=== PATIENT | female | born 1965 | race Two or more races ===

== ENCOUNTER → 2019-04-14 | Day surgery (SDC) | payer BC ==
[~2019-04-14] MED LIST: ATOR40TA PO; CARV25TA PO; FURO-69 PO; HYDROmorphone 2 MG/ML VIAL IV PRN; IV RINGERS,LACTATED 1000ML 1,000 ML IV SCH; LIDOCAINE 2% PF 5 ML VIAL. ONE; LISI10TA2 PO; METF500T16 PO; MORPHINE SULFATE 2 MG/ML VIAL. IV PRN; ONDANSETRON PF 4 MG/2 ML VIAL. IV PRN; PROCHLORPERAZINE 10 MG/2 ML VIAL. IV PRN; PROPOFOL 20 ML IV ONE; fentaNYL PF VIAL 100 MCG/2 ML VIAL IV PRN
[2019-04-14 09:02] VITALS: BP 132/68
== END | disposition home or self-care (01) ==
LOC: ENDOS 06:53
PROVIDERS: ATTEND Internal Medicine Gastroenterology
DX: R14.0 Abdominal distension (gaseous) (principal); K64.0 First degree hemorrhoids; K57.30 Diverticulosis of large intestine without perforation or abscess without bleeding; K29.50 Unspecified chronic gastritis without bleeding; R10.11 Right upper quadrant pain; I11.0 Hypertensive heart disease with heart failure; I50.9 Heart failure, unspecified; F32.9 Major depressive disorder, single episode, unspecified; E11.9 Type 2 diabetes mellitus without complications; Z80.0 Family history of malignant neoplasm of digestive organs; Z82.49 Family history of ischemic heart disease and other diseases of the circulatory system; Z83.3 Family history of diabetes mellitus; Z82.3 Family history of stroke; Z87.891 Personal history of nicotine dependence; Z79.84 Long term (current) use of oral hypoglycemic drugs; Z79.899 Other long term (current) drug therapy
CPT/HCPCS: 43235; 45378; J2001; J2704

== ENCOUNTER → 2019-04-27 | Outpatient (CLI) | payer BC ==
[2019-04-14 09:02] VITALS: BP 132/68
[~2019-04-27] VITALS: Ht 162.6 cm; Wt 69.9 kg
[~2019-04-27] MED LIST changes: -HYDROmorphone 2 MG/ML VIAL IV PRN; -IV RINGERS,LACTATED 1000ML 1,000 ML IV SCH; -LIDOCAINE 2% PF 5 ML VIAL. ONE; -MORPHINE SULFATE 2 MG/ML VIAL. IV PRN; -ONDANSETRON PF 4 MG/2 ML VIAL. IV PRN; -PROCHLORPERAZINE 10 MG/2 ML VIAL. IV PRN; -PROPOFOL 20 ML IV ONE; +SINCALIDE 1.4 MCG in IV NORMAL SALINE 50ML 30 ML IV ONE; -fentaNYL PF VIAL 100 MCG/2 ML VIAL IV PRN
--- NOTE | 2019-04-27 10:22 | RAD ---
Exam performed: Nuclear medicine hepatobiliary scan. History: Right upper quadrant pain Findings: Following intravenous administration of 5.3 mCi of Choletec tagged with Tc, sequential gamma camera images of the right upper quadrant of the abdomen were obtained. There is prompt accumulation of radionuclide in the liver demonstrates relative focal area of increased uptake in the dome of the liver with somewhat decreased uptake in the rest of the liver probably underlying liver disease or hepatic steatosis. Prompt accumulation in the central intrahepatic biliary radicals, gallbladder, common bile duct and small bowel is noted. Patient was also infused with 1.4mcg of CCK and gallbladder ejection fraction was calculated which measures 40% Impression: 1. No evidence of cystic duct obstruction with gallbladder ejection fraction measuring 40% 2. There is prompt accumulation of radionuclide in the liver demonstrates relative focal area of increased uptake in the dome of the liver with somewhat decreased uptake in the rest of the liver probably underlying liver disease or hepatic steatosis. Electronically signed by: Pepe Rhodes MD (04/27/2019 10:19 AM) [facility]
== END | disposition home or self-care (01) ==
LOC: NM 08:00
PROVIDERS: ATTEND Internal Medicine Gastroenterology
DX: R10.11 Right upper quadrant pain (principal)
CPT/HCPCS: 78227; A9537; J2805

== ENCOUNTER → 2019-05-19 | Outpatient (CLI) | payer BC ==
[2019-04-14 09:02] VITALS: BP 132/68
[~2019-05-19] MED LIST changes: +ATOR40TA59 PO; +LOVA20TA2 PO; -SINCALIDE 1.4 MCG in IV NORMAL SALINE 50ML 30 ML IV ONE; +TRAM50TA PO
[2019-05-19 14:07] LABS: BASO % 1 % (0-3); EOS % 0 % (0-3); HEMATOCRIT 41.2 % (36.0-47.0); HEMOGLOBIN 14.1 g/dL (12.0-15.5); LYMPH # 0.8 x10^3/uL (1.0-4.8); LYMPH % 16 % (24-48); MEAN CORPUSCULAR HEMOGLOBIN 32 pg (25-35); MEAN CORPUSCULAR HGB CONC 34 g/dL (31-37); MEAN CORPUSCULAR VOLUME 93 fL (79-100); MONO # 0.5 x10^3/uL (0.0-1.1); MONO % 10 % (0-9); NEUT # 3.7 x10^3/uL (1.8-7.7); NEUT % 72 % (31-73); PLATELET COUNT 179 x10^3/uL (140-400); RED BLOOD COUNT 4.42 x10^6/uL (3.50-5.40); RED CELL DISTRIBUTION WIDTH 14.3 % (11.5-14.5); WHITE BLOOD COUNT 5.1 x10^3/uL (4.0-11.0)
[2019-05-19 14:19] LABS: ALBUMIN 3.3 g/dL (3.4-5.0); CALCIUM 8.4 mg/dL (8.5-10.1); CREATININE 1.1 mg/dL (0.6-1.0); GFR 52.2; POTASSIUM 3.8 mmol/L (3.5-5.1); TOTAL BILIRUBIN 0.7 mg/dL (0.2-1.0)
--- NOTE | 2019-05-19 14:22 | EKG ---
[facility] [address] [place] [address] Test Date: 2019-05-19 Test Time: 14:21:30 Pat Name: CECILY CASTILLO Department: Room: Gender: F Parlor Chaperone: GILL Bradley : 1965 Requested By: CANDIS ALBARADO Order Number: [id number] Reading MD: Bertrand Borges Measurements Intervals [place] Rate: 85 P: 39 UT: 142 QRS: 116 QRSD: 136 T: -41 QT: 422 QTc: 502 Interpretive Statements SINUS RHYTHM LEFT ATRIAL ABNORMALITY ABNORMAL RIGHT AXIS DEVIATION LEFT POSTERIOR FASCICULAR BLOCK NON SPECIFIC INTRAVENTRICULAR BLOCK QRS(T) CONTOUR ABNORMALITY CONSISTENT WITH ANTEROSEPTAL INFARCT PROBABLY OLD ABNORMAL ECG RI6.01 No previous ECG available for comparison Electronically Signed On 05-20-2019 8:28:21 [employer] 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
--- NOTE | 2019-05-19 14:35 | NUR ---
PT STATES SHE WAS SEEN IN ER ABOUT 10 YEARS AGO AND A KINDERGARTEN TUTOR SAW HER WHO PERFORMED AN ECHO AND HEART CATHETER WHICH SHOWED CHF AND AN EF OF 16%. SHE DID NOT HAVE ANY INSURANCE AT THE TIME AND NEVER FOLLOWED UP. DR ALBARADO NOTIFIED. DR ALBARADO STATES TO ORDER EKG AND CXR, AND TO OBTAIN CARDIAC CONSULT AND CLEARANCE. PT INFORMED OF ABOVE, VOICES UNDERSTANDING.
--- NOTE | 2019-05-19 14:54 | RAD ---
AP and Lateral Views of the Chest 05/19/2019 2:38 PM Indication: Preoperative Comparison: None available Findings: There is nonspecific, ill-defined opacity in the right midlung. Interstitial coarsening is present. There is no pneumothorax or pleural effusion. Heart size is mildly enlarged. No acute osseous changes are seen. IMPRESSION: 1. Nonspecific ill-defined opacity in the right midlung. Consider CT imaging for further characterization 2. Diffuse interstitial coarsening possibly relating to mild chronic lung disease 3. Mild cardiomegaly Electronically signed by: Scott Rabago MD (05/19/2019 2:51 PM) [id number]
--- NOTE | 2019-05-19 15:00 | NUR ---
JABARI BARBA'S OFFICE NOTIFIED OF PT'S NEED FOR A CARDS CLEARANCE FOR HER REYES WITH DR BARGG. WILL NOTIFY A FREDA AND CALL ACACIA IN PAT BACK WITH DATE AND TIME OF REFERRAL SO THAT WE CAN NOTUFY DR BRAGG'S OFFICE. ACACIA, JAKE, UPDATED ON ALL.
== END ==
LOC: SURGPAT 13:03
PROVIDERS: ATTEND Surgery
DX: Z01.818 Encounter for other preprocedural examination (principal); I51.7 Cardiomegaly; I44.5 Left posterior fascicular block; I45.4 Nonspecific intraventricular block; R10.11 Right upper quadrant pain
CPT/HCPCS: 36415; 71046; 80048; 82040; 82247; 85025; 93005

== ENCOUNTER 2019-05-26 15:25 | Inpatient (IN) | payer BC ==
[~2019-05-26] VITALS: Ht 162.6 cm; Wt 62.5 kg
--- NOTE | 2019-05-26 17:04 | PDOC1 ---
History and Physical Date of Admission Date of Admission DATE: 05/26/19 TIME: 16:55 Source Source: Chart review, Patient History of Present Illness History of Present Illness Pt has been having chest pain for months. since february, pain to right chest. thought to be gallbladder, Dr. Luis Alberto banks, then to gen surg for surg eval, sent to Dr. Sepulveda for preop, and he noticed symptoms of heart failure, he called me to day to eval for cardiomyopathy and she did not sleep at all last night, garry 10/24 right chest pain, tramadol not helping, Past Medical History Cardiovascular: HTN, Hyperlipidemia Pulmonary: No pertinent hx Musculoskeletal: low back pain ENT: No pertinent hx Renal/: No pertinent hx Endocrine: Diabetes Past Surgical History Past Surgical History: No pertinent history Family History Family History: No Significant Social History Smoke: No ALCOHOL: none Drugs: None Current Medications Current Medications Active Scripts Active Reported Lovastatin 20 Mg Tablet 20 Mg PO HS Atorvastatin Calcium 40 Mg Tablet 40 Mg PO HS Metformin Hcl 500 Mg Tablet 1,000 Mg PO BIDAC Lasix (Furosemide) 20 Mg Tablet 20 Mg PO DAILY Lisinopril 10 Mg Tablet 1 Tab PO DAILY Coreg (Carvedilol) 25 Mg Tablet 25 Mg PO BIDWMEALS Allergies Allergies: Coded Allergies: No Known Drug Allergies (Unverified , 04/14/19) ROS General: No: Chills, Night Sweats, Fatigue, Malaise, Appetite, Other PSYCHOLOGICAL ROS: YES: Sleep disturbances; No: Anxiety, Behavioral Disorder, Concentration difficultie, Decreased libido, Depression, Disorientation, Hallucinations, Hostility, Irritablity, Memory difficulties, Mood Swings, Obsessive thoughts, Physical abuse, Sexual abuse, Suicidal ideation, Other Eyes: No Blurry vision, No Decreased vision, No Double vision, No Dry eyes, No Excessive tearing, No Eye Pain, No Itchy Eyes, No Loss of vision, No Photophobia, No Scotomata, No Uses contacts, No Uses glasses, No Other HEENT: No: Heacaches, Visual Changes, Hearing change, Nasal congestion, Nasal discharge, Oral lesions, Sinus pain, Sore Throat, Epistaxis, Sneezing, Snoring, Tinnitus, Vertigo, Vocal changes, Other Respiratory: No: Cough, Hemoptysis, Orthopnea, Pleuritic Pain, Shortness of breath, SOB with excertion, Sputum Changes, Stridor, Tachypnea, Wheezing, Other Cardiovascular: yes Chest Pain; No Palpitations, No Orthopnea, No Paroxysmal Noc. Dyspnea, No Edema, No Lt Headedness, No Other Gastrointestinal: No Nausea, No Vomiting, No Abdominal Pain, No Diarrhea, No Constipation, No Melena, No Hematochezia, No Other Genitourinary: No Dysuria, No Frequency, No Incontinence, No Hematuria, No Retention, No Discharge, No Urgency, No Pain, No Flank Pain, No Other, No , No , No , No , No , No , No Musculoskeletal: Yes Joint Pain, Yes Joint Stiffness; No Gait Disturbance, No Joint Swelling, No Muscle Pain, No Muscular Weakness, No Pain In:, No Swelling In:, No Other Neurological: No Behavorial Changes, No Bowel/Bladder ControlChng, No Confusion, No Dizziness, No Gait Disturbance, No Headaches, No Impaired Coord/balance, No Memory Loss, No Numbness/Tingling, No Seizures, No Speech Problems, No Tremors, No Visual Changes, No Weakness, No Other Skin: No Dry Skin, No Eczema, No Hair Changes, No Lumps, No Mole Changes, No Mottling, No Nail Changes, No Pruritus, No Rash, No Skin Lesion Changes, No Other, No Acne Physical Exam General: Alert, Oriented X3, Cooperative, mild distress HEENT: Atraumatic Lungs: Clear to auscultation Heart: no murmurs PELVIC: Nml ext uterus Extremities: No edema, Normal pulses Skin: No breakdown Neuro: Normal speech, Normal tone Psych/Mental Status: Mood NL VTE Prophylaxis Ordered VTE Prophylaxis Devices: No VTE Pharmacological Prophylaxi: Yes Assessment/Plan Assessment/Plan acute worsenign right chest pain new systolic CHF, cardiomyopathy Dm2, very poor control, blood sugar 450, will stop metformin as plan for cardiac cath, start insulin, add SSI, cont current, check TSH and A1c lipids, admit to [facility], eval for SANGEETA CHOI MD May 26, 2019 17:04
[2019-05-26] MEDS ORDERED: DEXTROSE 50% 25 GM / 50ML DISP.SYRIN. IV PRN (17:15)
[2019-05-26] MEDS ORDERED: metFORMIN 500 MG TABLET PO SCH (17:30)
[2019-05-26] MEDS: oxyCODONE/APAP 5/325 1 TAB TABLET PO PRN ×2 (17:42→22:27)
[2019-05-26] MEDS: INSULIN LISPRO 300 UNITS/3 ML VIAL. SQ SCH (17:47)
[2019-05-26 18:30] LABS: BASO # 0.1 x10^3/uL (0.0-0.2); BASO % 1 % (0-3); EOS # 0.1 x10^3/uL (0.0-0.7); EOS % 1 % (0-3); HEMOGLOBIN 13.1 g/dL (12.0-15.5); LYMPH % 25 % (24-48); MEAN CORPUSCULAR HEMOGLOBIN 31 pg (25-35); MEAN CORPUSCULAR HGB CONC 34 g/dL (31-37); MEAN CORPUSCULAR VOLUME 93 fL (79-100); MONO # 0.6 x10^3/uL (0.0-1.1); MONO % 8 % (0-9); NEUT # 5.2 x10^3/uL (1.8-7.7); NEUT % 65 % (31-73); PLATELET COUNT 240 x10^3/uL (140-400); RED BLOOD COUNT 4.18 x10^6/uL (3.50-5.40); RED CELL DISTRIBUTION WIDTH 14.1 % (11.5-14.5)
[2019-05-26 19:08] VITALS: BP 151/84
[2019-05-26 19:54] LABS: ALBUMIN 3.2 g/dL (3.4-5.0); ALBUMIN/GLOBULIN RATIO 0.9 (1.0-1.7); CALCIUM 8.6 mg/dL (8.5-10.1); CREATININE 1.1 mg/dL (0.6-1.0); GFR 52.2; TOTAL BILIRUBIN 0.4 mg/dL (0.2-1.0); TOTAL PROTEIN 6.6 g/dL (6.4-8.2)
[2019-05-26 19:55] LABS: POTASSIUM 4.3 mmol/L (3.5-5.1)
[2019-05-26] MEDS: ATORVASTATIN CALCIUM 40 MG TABLET. PO SCH (21:17)
[2019-05-26] MEDS: INSULIN GLARGINE SYRINGE. SQ SCH (21:19)
--- NOTE | 2019-05-26 22:25 | PDOC ---
Provider Note Provider Note 53 y.o woman seen in the office last week. SHe has known NICM with EF of 25% in the past. Never seen prior to last week in our system for heart issues. SHe has right upper quad pain. Thought to be gall bladder but spoke to Dr. Montez who felt that this was not likely a GB issue. She has severe LV dysfunction. ? if RUQ pain due to liver congestion. Will plan for Right and left heart cath and determine further plans. Probable GI consult and Gen surg consult tomorrow pending cath. Discussed r/b/a with patient and her prior to admission and they are agreeable to proceed. thanks JEVON PRECIADO MD May 26, 2019 22:25
[2019-05-26] MEDS: ZOLPIDEM 5 MG TABLET. PO PRN (22:27)
[2019-05-26 23:34] VITALS: BP 129/84
--- NOTE | 2019-05-26 23:44 | CONS ---
DATE OF CONSULTATION: 05/26/2019 ATTENDING PHYSICIAN: Zee Rodriguez MD. The patient was seen at the request of Dr. Rodriguez for rehab evaluation about her lower extremity numbness which has been going on for the last few days. LOCATION: She is in room 211. 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 The patient with known hypertension, hyperlipidemia, and diabetes mellitus, admitted on 05/26/2019 afternoon complaining of chest pain going on for months, actually since February, right-sided, thought to be gallbladder. She was seen by her nurse practitioner in [place]. General Surgery considering for cholecystectomy. The patient has seen Dr. Nia Noriega for preop. No symptoms of heart failure. The patient was admitted for cardiomyopathy, and she is scheduled for cardiac catheterization tomorrow. She admits chest pain disturbing her sleep. Tramadol not much help. The patient is not known allergic to any medication. She admits some right upper quadrant area abdominal pain. She denies any back pain radiating to the extremities. The patient denies any numbness in her hands. The patient lives with her family in [place], [place], at home. PHYSICAL EXAMINATION: Today revealed a middle-aged female. She is in no acute distress. She is alert, oriented to time, place, person, and circumstance, follows commands appropriately, moves all 4 extremities voluntarily where she had 4+/5 grade muscle strength and deep tendon reflexes are decreased overall with absent ankle jerks, and she had equal perception of touch and pinprick sensation bilaterally, maybe slightly decreased sensory perception over dorsal aspect of left foot when compared to right side. The patient had painful range of motion of both hips, knee and ankle joints and lumbar spine. No tenderness to palpation over thoracic or lumbar spine area or sacroiliac joint area or trochanteric bursa was noted at this time. ASSESSMENT: A middle-aged female with diabetes mellitus with paresthesias in her feet, probably from peripheral neuropathy. The patient with hypertension, hyperlipidemia, congestive heart failure, and probable cholecystitis. RECOMMENDATIONS: If she is really having significant discomfort with paresthesias in her feet, we have to try gabapentin when medically stable. Dr. Rodriguez, I appreciate asking me to participate in the care of this interesting patient. I will be glad to see her for followup on as needed basis. ANDREW RAMIREZ MD DR: DANNIE/kelsy JOB#: [id number] / [id number]
[2019-05-27] VITALS (14 sets, daily range): BP systolic 90–146; BP diastolic 48–94
[2019-05-27] MEDS: INSULIN LISPRO 300 UNITS/3 ML VIAL. SQ SCH ×6 (08:00→17:00)
[2019-05-27] MEDS: LISINOPRIL 10 MG TABLET PO SCH (08:10)
[2019-05-27] MEDS: oxyCODONE/APAP 5/325 1 TAB TABLET PO PRN ×2 (08:10→19:33)
--- NOTE | 2019-05-27 08:23 | PDOC2 ---
CARDIAC CONSULT DATE OF CONSULT Date of Consult DATE: 05/27/19 TIME: 08:23 CURRENT MEDICATIONS CURRENT MEDICATIONS Current Medications Medications (Trade) Dose Ordered Sig/Aylin Route PRN Reason Start Time Stop Time Status Last Admin Dose Admin Oxycodone/ Acetaminophen (Percocet 5/325) 1 tab PRN Q4HRS PRN PO PAIN 05/26/19 17:00 05/26/19 22:27 Zolpidem Tartrate (Ambien) 5 mg PRN QHS PRN PO INSOMNIA 05/26/19 17:00 05/26/19 22:27 Atorvastatin Calcium (Lipitor) 40 mg HS PO 05/26/19 21:00 05/26/19 21:17 Insulin Human Lispro (HumaLOG) 15 units TIDWMEALS SQ 05/26/19 17:10 05/26/19 17:47 Insulin Glargine (Lantus Syringe) 25 unit QHS SQ 05/26/19 21:00 05/26/19 21:19 ALLERGIES ALLERGIES: Coded Allergies: No Known Drug Allergies (Unverified , 04/14/19) VITALS/I&O VITALS/I&O: Vital Signs Date Time Temp Pulse Resp B/P (MAP) Pulse Ox O2 Delivery O2 Flow Rate FiO2 05/27/19 03:41 98.1 89 16 141/94 (110) 100 Room Air 98.1 I & O 05/26/19 05/26/19 05/27/19 15:00 23:00 07:00 Intake Total 360 ml 0 ml Output Total 300 ml 0 ml Balance 60 ml 0 ml LABS Lab: Laboratory Tests Test 05/26/19 16:56 05/26/19 18:15 05/26/19 20:21 05/27/19 08:16 Glucose (Fingerstick) 456 mg/dL (70-99) H 211 mg/dL (70-99) H 216 mg/dL (70-99) H White Blood Count 8.0 x10^3/uL (4.0-11.0) Red Blood Count 4.18 x10^6/uL (3.50-5.40) Hemoglobin 13.1 g/dL (12.0-15.5) Hematocrit 39.0 % (36.0-47.0) Mean Corpuscular Volume 93 fL (79-100) Mean Corpuscular Hemoglobin 31 pg (25-35) Mean Corpuscular Hemoglobin Concent 34 g/dL (31-37) Red Cell Distribution Width 14.1 % (11.5-14.5) Platelet Count 240 x10^3/uL (140-400) Neutrophils (%) (Auto) 65 % (31-73) Lymphocytes (%) (Auto) 25 % (24-48) Monocytes (%) (Auto) 8 % (0-9) Eosinophils (%) (Auto) 1 % (0-3) Basophils (%) (Auto) 1 % (0-3) Neutrophils # (Auto) 5.2 x10^3/uL (1.8-7.7) Lymphocytes # (Auto) 2.0 x10^3/uL (1.0-4.8) Monocytes # (Auto) 0.6 x10^3/uL (0.0-1.1) Eosinophils # (Auto) 0.1 x10^3/uL (0.0-0.7) Basophils # (Auto) 0.1 x10^3/uL (0.0-0.2) Sodium Level 131 mmol/L (136-145) L Potassium Level 4.3 mmol/L (3.5-5.1) Chloride Level 94 mmol/L (98-107) L Carbon Dioxide Level 29 mmol/L (21-32) Anion Gap 8 (6-14) Blood Urea Nitrogen 28 mg/dL (7-20) H Creatinine 1.1 mg/dL (0.6-1.0) H Estimated GFR (Cockcroft-Gault) 52.2 BUN/Creatinine Ratio 25 (6-20) H Glucose Level 437 mg/dL (70-99) H Calcium Level 8.6 mg/dL (8.5-10.1) Total Bilirubin 0.4 mg/dL (0.2-1.0) Aspartate Amino Transferase (AST) 11 U/L (15-37) L Alanine Aminotransferase (ALT) 23 U/L (14-59) Alkaline Phosphatase 118 U/L (46-116) H Total Protein 6.6 g/dL (6.4-8.2) Albumin 3.2 g/dL (3.4-5.0) L Albumin/Globulin Ratio 0.9 (1.0-1.7) L Thyroid Stimulating Hormone (TSH) 0.251 uIU/mL (0.358-3.74) L Laboratory Tests 05/26/19 18:15 Laboratory Tests 05/26/19 18:15 DEBORAH CISNEROS APRN May 27, 2019 08:23
[2019-05-27] MEDS ORDERED: fentaNYL PF VIAL 100 MCG/2 ML VIAL IV ONE (09:00)
[2019-05-27] MEDS ORDERED: LIDOCAINE 1% PF 2 ML VIAL. INJ ONE (09:00)
[2019-05-27] MEDS ORDERED: VERAPAMIL 5 MG/2 ML VIAL. IART ONE (09:00)
[2019-05-27] MEDS ORDERED: IODIXANOL 320 MG/ML 100 ML VIAL. IART ONE (09:00)
[2019-05-27] MEDS ORDERED: MIDAZOLAM HCL/PF 2 MG/2 ML VIAL. IV ONE (09:00)
[2019-05-27] MEDS ORDERED: HEPARIN for IV BOLUS 10,000 UNIT/10 ML VIAL. IART ONE (09:00)
[2019-05-27] MEDS ORDERED: NITROGLYCERIN 200 MCG/2 ML SYRINGE FOR CATH/VASC LAB. IART ONE (09:00)
[2019-05-27] MEDS ORDERED: NITROGLYCERIN 200 MCG/2 ML SYRINGE FOR CATH/VASC LAB. ONE (09:10)
[2019-05-27] MEDS ORDERED: LIDOCAINE 1% Multi-Dose 20 ML VIAL. ONE (09:11)
[2019-05-27] MEDS ORDERED: CONTRAST GIVEN. MC PRN (09:15)
--- NOTE | 2019-05-27 10:43 | CARD ---
MR#: [id number] Date of Study: 05/27/2019 Ordering Physician: JEVON SEPULVEDA, Referring Physician: JEVON SEPULVEDA, Tech: RT Li (R) APPROVED REPORT Technologist: Nivia Poe RT (R) BILLY Nurse: Cassandra Soto RN Procedure(s) performed: fl time: 2.7 mins dose: 33 gycm2 contrast: 40 ml moderate sedation: 40 mins LHC+Coronary angiography HISTORY The patient is a 53 year-old female with a history of : diabetes mellitus with treatment, tobacco his tory() , hypertension, dyslipidemia. INDICATION The indication(s) include : dyspnea, cardiomyopathy. [facility] Clinical Frailty Scale [facility] Clinical Frailty Scale: Moderately Frail Heart Failure Heart Failure: Yes If Yes, Newly Diagnosed: No If Yes, HF Type: Systolic If Yes, NYHA Class: Class II PROCEDURE NARRATIVE CLINICAL INDICATION: 53 y.o woman presenting with worsening heart failure symptoms and RUQ pain. Righ t and left heart cath performed due to severe LV dysfunction and need for possible LV support prior t o any intra-abdominal surgery for severe abdominal pain. INFORMED CONSENT: After explaining the risks and benefits of the procedure and alternatives, informed consent was obtained. The patient was brought electively to the cardiac catheterization lab. A timeout was performed confi rming the patient's name, date of , procedure, and site of procedure. All necessary personnel w ere wearing the appropriate protective equipment and radiation monitor devices. (See nursing notes for medications administered). ACCESS: The right wrist was sterilely prepped and draped in the usual fashion. The right wrist was infiltrat ed with 1 mL of 2% lidocaine for subcutaneous anesthesia. A 6 Maltese Terumo glide sheath was inserte d into the right radial artery without difficulty. A 5Fr sheath was placed in the RIJ. CORONARY ANGIOGRAPHY: Right and left coronary angiography was performed using a 6Fr TIG 4.0 catheter. Left ventricular en d diastolic pressure was obtained with a TIG catheter and pullback was performed after left ventricul ography. All catheter exchanges and advancements were performed over a guidewire. RHC: A 5Fr PA catheter was advanced through the right heart chambers and pressures/saturations were d rawn. CLOSURE: At case completion the right radial sheath was removed and a Terumo radial band was applied with 13 m l of air. COMPLICATIONS: The patient tolerated the procedure well and there were no immediate complications. FINDINGS: HEMODYNAMICS: LVEDP 10 mm Hg No gradient on LV to aortic pullback. AO: 128/78 RHC: RA: 8 mm Hg RV: 20/6 PA: 21/12 PCWP: 10 PA sat: 70 FA sat: 98% FickCO: 3.8 L/min, CI 2.2 LEFT VENTRICULOGRAM: Deferred due to known LVEF of 15% CORONARY ANGIOGRAPHY: LM is a large caliber vessel with normal angiographic appearance. LAD is a large caliber vessel with normal angiographic appearance. LCx is a moderate caliber non-dominant vessel with mid 30% stenosis. OM1 is a moderate caliber vessel with normal angiographic appearance. RCA is a large caliber dominant vessel with normal angiographic appearance. RPDA and RPL are moderate caliber vessels with normal angiographic appearance. Conclusion 1. Normal biventricular filling pressures. 2. No pulmonary HTN 3. Normal cardiac output. 4. No significant coronary disease. Recommendations 1. Patient's severe RUQ pain is unlikely to be related to any cardiac issues. 2. She would be deemed moderate risk for lap graham if needed per GI service. Currently she is very we ll compensated from a CV standpoint. Defer further w/u to GI/surgery teams. Stable for discharge on c urrent therapy from CV standpoint. Signed by : Jevon Sepulveda, Electronically Approved : 05/27/2019 10:43:40
--- NOTE | 2019-05-27 10:58 | PDOC2 ---
CARDIAC CONSULT DATE OF CONSULT Date of Consult DATE: 05/27/19 TIME: 10:30 REASON FOR CONSULT Reason for Consult: CHF, CM REFERRING PHYSICIAN Referring Physician: Michael SOURCE Source: Chart review, Patient HISTORY OF PRESENT ILLNESS HISTORY OF PRESENT ILLNESS This is a pleasant 53 yo female admitted for weak heart. She was seen in our office for preop cardiac clearance for possible lap graham consideration. She has been diagnosed for NICM in 2016 with EF at 25% but no known cardiac cath. Reports no prior surgeries. She wnet for TTE on 05/24 and noted with EF of 10- 15%. She has been complaining right chest pain, SOA when going up the stairs but no palpitations, peripheral edema, orthopnea, or any frequent dizziness or passing out. She has been having intermittent n/v and her appetite has on and off and finally yesterday her appetite picked up. No recent fever or chills. Her activity tolerance have been the same otherwise in the last few months without any significant wt gain and actually lost some wt. She has been told to come for further evaluation to rule out any ischemic changes that may have contr ibuted to her cardiomyopathy. She takes coreg, lisinopril, lasix, lovastatin and metformin and has been complaint with her medications. She has hx of COLTON and last CPAP use was 20 yrs citing that it was better as she lost a lot of wt. She has never used recreational drugs. PAST MEDICAL HISTORY Cardiovascular: Hyperlipidemia, Other (cardiomyopathy) Pulmonary: Other (COLTON) CENTRAL NERVOUS SYSTEM: Other (No pertinent history) GI: GERD Heme/Onc: No pertinent hx Hepatobiliary: No pertinent hx Psych: No pertinent hx Musculoskeletal: Other (no pertinent history) Rheumatologic: No pertinent hx Infectious disease: No pertinent hx ENT: No pertinent hx Renal/: No pertinent hx Endocrine: No pertinent hx Dermatology: No pertinent hx PAST SURGICAL HISTORY Past Surgical History: No pertinent history FAMILY HISTORY Family History noncontributory SOCIAL HISTORY Smoke: No ALCOHOL: none Drugs: None Lives: with Family CURRENT MEDICATIONS CURRENT MEDICATIONS Current Medications Medications (Trade) Dose Ordered Sig/Aylin Route PRN Reason Start Time Stop Time Status Last Admin Dose Admin Oxycodone/ Acetaminophen (Percocet 5/325) 1 tab PRN Q4HRS PRN PO PAIN 05/26/19 17:00 05/27/19 08:10 Zolpidem Tartrate (Ambien) 5 mg PRN QHS PRN PO INSOMNIA 05/26/19 17:00 05/26/19 22:27 Atorvastatin Calcium (Lipitor) 40 mg HS PO 05/26/19 21:00 05/26/19 21:17 Lisinopril (Prinivil) 10 mg DAILY PO 05/27/19 09:00 05/27/19 08:10 Insulin Human Lispro (HumaLOG) 0-9 UNITS TIDWMEALS SQ 05/27/19 08:00 05/27/19 08:25 Insulin Human Lispro (HumaLOG) 15 units TIDWMEALS SQ 05/26/19 17:10 05/26/19 17:47 Insulin Glargine (Lantus Syringe) 25 unit QHS SQ 05/26/19 21:00 05/26/19 21:19 Nitroglycerin (Nitroglycerin) 200 mcg 1X ONCE IART 05/27/19 09:00 05/27/19 09:13 DC 05/27/19 09:27 Verapamil HCl (Verapamil) 2.5 mg 1X ONCE IART 05/27/19 09:00 05/27/19 09:13 DC 05/27/19 09:27 Heparin Sodium (Porcine) (Heparin Sodium) 2,500 unit 1X ONCE IART 05/27/19 09:00 05/27/19 09:13 DC 05/27/19 09:27 Heparin Sodium/ Sodium Chloride (HEPARIN for ARTERIAL LINE FLUSH) 1,000 unit 1X ONCE IART 05/27/19 09:00 05/27/19 09:13 DC 05/27/19 09:00 Heparin Sodium/ Sodium Chloride (HEPARIN for ARTERIAL LINE FLUSH) 1,000 unit 1X ONCE IART 05/27/19 09:00 05/27/19 09:13 DC 05/27/19 09:00 Midazolam HCl (Versed) 2 mg 1X ONCE IV 05/27/19 09:00 05/27/19 09:13 DC 05/27/19 09:25 Fentanyl Citrate (Fentanyl 2ml Vial) 100 mcg 1X ONCE IV 05/27/19 09:00 05/27/19 09:13 DC 05/27/19 09:25 Iodixanol (Visipaque 320) 100 ml 1X ONCE IART 05/27/19 09:00 05/27/19 09:13 DC 05/27/19 09:51 Lidocaine HCl (Xylocaine-Mpf 1% 2ml Vial) 2 ml 1X ONCE INJ 05/27/19 09:00 05/27/19 09:13 DC 05/27/19 09:00 ALLERGIES ALLERGIES: Coded Allergies: No Known Drug Allergies (Unverified , 04/14/19) ROS Review of System 14 point ROS evaluated with pertinent positives noted per HPI PHYSICAL EXAM General: Alert, Oriented X3, Cooperative, No acute distress HEENT: Atraumatic, Mucous membr. moist/pink Lungs: Clear to auscultation, Normal air movement Heart: Regular rate (SR), Normal S1, Normal S2, Other (S4. left displaced apical impulse with 3/6 spical murmur) Abdomen: Soft, No tenderness Extremities: No cyanosis, No edema Skin: No breakdown, No significant lesion Neuro: Normal speech, Sensation intact Psych/Mental Status: Mental status NL, Mood NL MUSCULOSKELETAL: Full range of motion without pain VITALS/I&O VITALS/I&O: Vital Signs Date Time Temp Pulse Resp B/P (MAP) Pulse Ox O2 Delivery O2 Flow Rate FiO2 05/27/19 10:00 80 13 97 Nasal Cannula 2.0 05/27/19 08:10 146/88 05/27/19 07:00 98.0 98.0 I & O 05/26/19 05/26/19 05/27/19 15:00 23:00 07:00 Intake Total 360 ml 0 ml Output Total 300 ml 0 ml Balance 60 ml 0 ml LABS Lab: Laboratory Tests Test 05/26/19 16:56 05/26/19 18:15 05/26/19 20:21 05/27/19 08:16 Glucose (Fingerstick) 456 mg/dL (70-99) H 211 mg/dL (70-99) H 216 mg/dL (70-99) H White Blood Count 8.0 x10^3/uL (4.0-11.0) Red Blood Count 4.18 x10^6/uL (3.50-5.40) Hemoglobin 13.1 g/dL (12.0-15.5) Hematocrit 39.0 % (36.0-47.0) Mean Corpuscular Volume 93 fL (79-100) Mean Corpuscular Hemoglobin 31 pg (25-35) Mean Corpuscular Hemoglobin Concent 34 g/dL (31-37) Red Cell Distribution Width 14.1 % (11.5-14.5) Platelet Count 240 x10^3/uL (140-400) Neutrophils (%) (Auto) 65 % (31-73) Lymphocytes (%) (Auto) 25 % (24-48) Monocytes (%) (Auto) 8 % (0-9) Eosinophils (%) (Auto) 1 % (0-3) Basophils (%) (Auto) 1 % (0-3) Neutrophils # (Auto) 5.2 x10^3/uL (1.8-7.7) Lymphocytes # (Auto) 2.0 x10^3/uL (1.0-4.8) Monocytes # (Auto) 0.6 x10^3/uL (0.0-1.1) Eosinophils # (Auto) 0.1 x10^3/uL (0.0-0.7) Basophils # (Auto) 0.1 x10^3/uL (0.0-0.2) Sodium Level 131 mmol/L (136-145) L Potassium Level 4.3 mmol/L (3.5-5.1) Chloride Level 94 mmol/L (98-107) L Carbon Dioxide Level 29 mmol/L (21-32) Anion Gap 8 (6-14) Blood Urea Nitrogen 28 mg/dL (7-20) H Creatinine 1.1 mg/dL (0.6-1.0) H Estimated GFR (Cockcroft-Gault) 52.2 BUN/Creatinine Ratio 25 (6-20) H Glucose Level 437 mg/dL (70-99) H Calcium Level 8.6 mg/dL (8.5-10.1) Total Bilirubin 0.4 mg/dL (0.2-1.0) Aspartate Amino Transferase (AST) 11 U/L (15-37) L Alanine Aminotransferase (ALT) 23 U/L (14-59) Alkaline Phosphatase 118 U/L (46-116) H Total Protein 6.6 g/dL (6.4-8.2) Albumin 3.2 g/dL (3.4-5.0) L Albumin/Globulin Ratio 0.9 (1.0-1.7) L Thyroid Stimulating Hormone (TSH) 0.251 uIU/mL (0.358-3.74) L Laboratory Tests 05/26/19 18:15 Laboratory Tests 05/26/19 18:15 ECHOCARDIOGRAM ECHOCARDIOGRAM <Conclusion> The Left Ventricle is severely dilated. Left ventricle systolic function is severely impaired. The Ejection Fraction is 10-15%. Doppler and Color-flow revealed moderate mitral regurgitation. DATE: 05/25/19 1142 ASSESSMENT/PLAN ASSESSMENT/PLAN 1. Severe cardiomyopathy: Possibly NICm. EF at 10-15% appears compensated 2. Right sided chest pain: with intermittent n/v. was being considered for outpt lap graham 3. HLP 4. DM2 5. WAQAS vs CKD Recommendations 1. LHC/RHC today to evaluated intracardiac gradients and any contributing ischemia, results pending 2. BMP and Mg today Check lipids and TSH 3. Restart home coreg and lisinopril per BP trend . statin per lipid level. Continue po lasix therapy xtra dose PRN 4. Will arrange for lifevest prior to DC unless AICD is to be done during this staty 5. Continue optimization and arrange referral for heart transplant. 6. Daily wt, Strict I & O. 1.5 L DEBORAH SALDAÑA APRN May 27, 2019 10:58
--- NOTE | 2019-05-27 11:23 | EKG ---
[facility] [address] [place] [address] Test Date: 2019-05-27 Test Time: 11:20:04 Pat Name: CECILY CASTILLO Department: Room: 211 1 Gender: F Entry Table Operator: LEONELA : 1965 Requested By: DEBORAH CISNEROS Order Number: [id number] Reading MD: Measurements Intervals [place] Rate: 75 P: 54 WI: 176 QRS: -51 QRSD: 136 T: 107 QT: 454 QTc: 510 Interpretive Statements SINUS RHYTHM LEFT ATRIAL ABNORMALITY ABNORMAL LEFT AXIS DEVIATION NON SPECIFIC INTRAVENTRICULAR BLOCK ABNORMAL ECG RI6.02 Compared to ECG 05/19/2019 14:21:30 Left-axis deviation now present Right-axis deviation no longer present Left posterior fascicular block no longer present Myocardial infarct finding no longer present
--- NOTE | 2019-05-27 11:27 | PDOC2 ---
GI CONSULT Reason For Consult: RUQ pain - d/w Dr. Sepulveda HPI: HPI: 53 y/o female w/ pain since February. Located in right ribs and under right breast - constant throbbing, sometimes stabbing. Recently goes across to left ribs too. Unchanged w/ eating or stooling. Might have some epigastric pain too. Typically appetite is good but a couple weekends ago was sick with vomiting for about a day and then only ate a little bit for awhile - back to normal now. Has lost >10 pounds recently. No reflux/heartburn, dysphagia, hematemesis, hematochezia, melena, diarrhea, or constipation. EGD and colonoscopy in 03/[address] Campos for RUQ pain showed normal esophagus, non- erosive gastritis, normal duodenum, sigmoid diverticulosis, and internal hemorrhoids. HIDA showed GB EF of 40% - she says she saw Dr. Montez who told her he wasn't sure if cholecystectomy would resolve pain issue; however, she underwent cardiac workup as part of pre-op clearance. D/w Dr. Sepulveda this morning - has cardiomyopathy but is well-compensated. HIDA also was suggestive of hepatic steatosis. No liver or PUD history. Tried Tramadol for pain, didn't really help. 's muscle relaxer might have helped. No NSAIDs. She says she'd like to talk to a GI doctor about her pain. Nurse mentions recent of 17 y/o son, wonders if depression contributes to pain. PMH: PMH: cardiomyopathy, HTN, DM, depression benign right lumpectomy, I&D back (spider bite) FH: Family History: No pertinent hx (denies GI cancers), Other (DM, kidney disease) Social History: Smoke: No ALCOHOL: none Drugs: None ROS: GEN: Denies fevers, chills, sweats HEENT: Denies blurred vision, sore throat CV: Denies chest pain RESP: Denies shortness of air, cough GI: Per HPI : Denies hematuria, dysuria ENDO: +weight loss NEURO: Denies confusion, dizziness MSK: Denies weakness, joint pain/swelling SKIN: Denies jaundice, pruritus Vitals: Vitals: Vital Signs Date Time Temp Pulse Resp B/P (MAP) Pulse Ox O2 Delivery O2 Flow Rate FiO2 05/27/19 10:00 80 13 97 Nasal Cannula 2.0 05/27/19 08:10 146/88 05/27/19 07:00 98.0 98.0 Labs: Labs: Laboratory Tests Test 05/26/19 16:56 05/26/19 18:15 05/26/19 20:21 05/27/19 08:16 Glucose (Fingerstick) 456 mg/dL (70-99) 211 mg/dL (70-99) 216 mg/dL (70-99) White Blood Count 8.0 x10^3/uL (4.0-11.0) Red Blood Count 4.18 x10^6/uL (3.50-5.40) Hemoglobin 13.1 g/dL (12.0-15.5) Hematocrit 39.0 % (36.0-47.0) Mean Corpuscular Volume 93 fL (79-100) Mean Corpuscular Hemoglobin 31 pg (25-35) Mean Corpuscular Hemoglobin Concent 34 g/dL (31-37) Red Cell Distribution Width 14.1 % (11.5-14.5) Platelet Count 240 x10^3/uL (140-400) Neutrophils (%) (Auto) 65 % (31-73) Lymphocytes (%) (Auto) 25 % (24-48) Monocytes (%) (Auto) 8 % (0-9) Eosinophils (%) (Auto) 1 % (0-3) Basophils (%) (Auto) 1 % (0-3) Neutrophils # (Auto) 5.2 x10^3/uL (1.8-7.7) Lymphocytes # (Auto) 2.0 x10^3/uL (1.0-4.8) Monocytes # (Auto) 0.6 x10^3/uL (0.0-1.1) Eosinophils # (Auto) 0.1 x10^3/uL (0.0-0.7) Basophils # (Auto) 0.1 x10^3/uL (0.0-0.2) Sodium Level 131 mmol/L (136-145) Potassium Level 4.3 mmol/L (3.5-5.1) Chloride Level 94 mmol/L (98-107) Carbon Dioxide Level 29 mmol/L (21-32) Anion Gap 8 (6-14) Blood Urea Nitrogen 28 mg/dL (7-20) Creatinine 1.1 mg/dL (0.6-1.0) Estimated GFR (Cockcroft-Gault) 52.2 BUN/Creatinine Ratio 25 (6-20) Glucose Level 437 mg/dL (70-99) Calcium Level 8.6 mg/dL (8.5-10.1) Total Bilirubin 0.4 mg/dL (0.2-1.0) Aspartate Amino Transf (AST/SGOT) 11 U/L (15-37) Alanine Aminotransferase (ALT/SGPT) 23 U/L (14-59) Alkaline Phosphatase 118 U/L (46-116) Total Protein 6.6 g/dL (6.4-8.2) Albumin 3.2 g/dL (3.4-5.0) Albumin/Globulin Ratio 0.9 (1.0-1.7) Thyroid Stimulating Hormone (TSH) 0.251 uIU/mL (0.358-3.74) Allergies: Coded Allergies: No Known Drug Allergies (Unverified , 04/14/19) Medications: Current Medications Medications (Trade) Dose Ordered Sig/Aylin Route PRN Reason Start Time Stop Time Status Last Admin Dose Admin Oxycodone/ Acetaminophen (Percocet 5/325) 1 tab PRN Q4HRS PRN PO PAIN 05/26/19 17:00 05/27/19 08:10 Zolpidem Tartrate (Ambien) 5 mg PRN QHS PRN PO INSOMNIA 05/26/19 17:00 05/26/19 22:27 Atorvastatin Calcium (Lipitor) 40 mg HS PO 05/26/19 21:00 05/26/19 21:17 Lisinopril (Prinivil) 10 mg DAILY PO 05/27/19 09:00 05/27/19 08:10 Insulin Human Lispro (HumaLOG) 0-9 UNITS TIDWMEALS SQ 05/27/19 08:00 05/27/19 08:25 Insulin Human Lispro (HumaLOG) 15 units TIDWMEALS SQ 05/26/19 17:10 05/26/19 17:47 Insulin Glargine (Lantus Syringe) 25 unit QHS SQ 05/26/19 21:00 05/26/19 21:19 Nitroglycerin (Nitroglycerin) 200 mcg 1X ONCE IART 05/27/19 09:00 05/27/19 09:13 DC 05/27/19 09:27 Verapamil HCl (Verapamil) 2.5 mg 1X ONCE IART 05/27/19 09:00 05/27/19 09:13 DC 05/27/19 09:27 Heparin Sodium (Porcine) (Heparin Sodium) 2,500 unit 1X ONCE IART 05/27/19 09:00 05/27/19 09:13 DC 05/27/19 09:27 Heparin Sodium/ Sodium Chloride (HEPARIN for ARTERIAL LINE FLUSH) 1,000 unit 1X ONCE IART 05/27/19 09:00 05/27/19 09:13 DC 05/27/19 09:00 Heparin Sodium/ Sodium Chloride (HEPARIN for ARTERIAL LINE FLUSH) 1,000 unit 1X ONCE IART 05/27/19 09:00 05/27/19 09:13 DC 05/27/19 09:00 Midazolam HCl (Versed) 2 mg 1X ONCE IV 05/27/19 09:00 05/27/19 09:13 DC 05/27/19 09:25 Fentanyl Citrate (Fentanyl 2ml Vial) 100 mcg 1X ONCE IV 05/27/19 09:00 05/27/19 09:13 DC 05/27/19 09:25 Iodixanol (Visipaque 320) 100 ml 1X ONCE IART 05/27/19 09:00 05/27/19 09:13 DC 05/27/19 09:51 Lidocaine HCl (Xylocaine-Mpf 1% 2ml Vial) 2 ml 1X ONCE INJ 05/27/19 09:00 05/27/19 09:13 DC 05/27/19 09:00 Imaging: Imaging: Conclusion 1. Normal biventricular filling pressures. 2. No pulmonary HTN 3. Normal cardiac output. 4. No significant coronary disease. Recommendations 1. Patient's severe RUQ pain is unlikely to be related to any cardiac issues. 2. She would be deemed moderate risk for lap graham if needed per GI service. Currently she is very well compensated from a CV standpoint. Defer further w/u to GI/surgery teams. Stable for discharge on current therapy from CV standpoint. PE: GEN: NAD HEENT: Atraumatic, PERRL LUNGS: CTAB HEART: RRR ABD: NABS, S/ND, mild epigastric discomfort - pain begins nearly in right flank, wraps around right ribs under right breast, travels across to left ribs EXTREMITY: No edema SKIN: No rashes, no jaundice NEURO/PSYCH: A & O 3 A/P: A/P: Pain - right and lefts ribs/flanks, under right breast, ?some epigastric Vomiting 2 weeks ago (resolved), weight loss CRC screen - UTD Diverticulosis, hemorrhoids DM -- D/w Dr. Campos - will order GES. A1c pending, note low TSH. 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 MAVERICK GAXIOLA May 27, 2019 11:27
[2019-05-27 12:05] LABS: CALCIUM 8.6 mg/dL (8.5-10.1); CREATININE 0.9 mg/dL (0.6-1.0); GFR 65.8; MAGNESIUM 1.8 mg/dL (1.8-2.4); POTASSIUM 3.9 mmol/L (3.5-5.1)
[2019-05-27 12:07] LABS: CHOLESTEROL/HDL RATIO 4.1
--- NOTE | 2019-05-27 12:07 | PDOC ---
[employer] PROGRESS NOTE History of Present Illness History of Present Illness 05/27/19 Pt admitted yesterday for new systolic HF and RUQ pain. General surgery was involved with care for possible lap graham when heart failure was found. Pt was seen and examined sitting in bed s/p bilateral cardiac catheterization. Discussed care with RN. Discussed pt with retail training manager. Vitals/I&O Vitals/I&O: Vital Signs Date Time Temp Pulse Resp B/P (MAP) Pulse Ox O2 Delivery O2 Flow Rate FiO2 05/27/19 11:00 98.1 75 16 101/61 (74) 97 Room Air 98.1 05/27/19 10:00 2.0 I & O 05/26/19 05/26/19 05/27/19 15:00 23:00 07:00 Intake Total 360 ml 0 ml Output Total 300 ml 0 ml Balance 60 ml 0 ml Physical Exam General: Alert, Oriented X3, Cooperative, No acute distress Heart: Regular rate (SR), Normal S1, Normal S2, Other (S4. left displaced apical impulse with 3/6 spical murmur) Abdomen: Soft, No tenderness Extremities: No cyanosis, No edema Skin: No breakdown, No significant lesion Labs Labs: Laboratory Tests Test 05/26/19 16:56 05/26/19 18:15 05/26/19 20:21 05/27/19 08:16 Glucose (Fingerstick) 456 mg/dL (70-99) 211 mg/dL (70-99) 216 mg/dL (70-99) White Blood Count 8.0 x10^3/uL (4.0-11.0) Red Blood Count 4.18 x10^6/uL (3.50-5.40) Hemoglobin 13.1 g/dL (12.0-15.5) Hematocrit 39.0 % (36.0-47.0) Mean Corpuscular Volume 93 fL (79-100) Mean Corpuscular Hemoglobin 31 pg (25-35) Mean Corpuscular Hemoglobin Concent 34 g/dL (31-37) Red Cell Distribution Width 14.1 % (11.5-14.5) Platelet Count 240 x10^3/uL (140-400) Neutrophils (%) (Auto) 65 % (31-73) Lymphocytes (%) (Auto) 25 % (24-48) Monocytes (%) (Auto) 8 % (0-9) Eosinophils (%) (Auto) 1 % (0-3) Basophils (%) (Auto) 1 % (0-3) Neutrophils # (Auto) 5.2 x10^3/uL (1.8-7.7) Lymphocytes # (Auto) 2.0 x10^3/uL (1.0-4.8) Monocytes # (Auto) 0.6 x10^3/uL (0.0-1.1) Eosinophils # (Auto) 0.1 x10^3/uL (0.0-0.7) Basophils # (Auto) 0.1 x10^3/uL (0.0-0.2) Sodium Level 131 mmol/L (136-145) Potassium Level 4.3 mmol/L (3.5-5.1) Chloride Level 94 mmol/L (98-107) Carbon Dioxide Level 29 mmol/L (21-32) Anion Gap 8 (6-14) Blood Urea Nitrogen 28 mg/dL (7-20) Creatinine 1.1 mg/dL (0.6-1.0) Estimated GFR (Cockcroft-Gault) 52.2 BUN/Creatinine Ratio 25 (6-20) Glucose Level 437 mg/dL (70-99) Calcium Level 8.6 mg/dL (8.5-10.1) Total Bilirubin 0.4 mg/dL (0.2-1.0) Aspartate Amino Transf (AST/SGOT) 11 U/L (15-37) Alanine Aminotransferase (ALT/SGPT) 23 U/L (14-59) Alkaline Phosphatase 118 U/L (46-116) Total Protein 6.6 g/dL (6.4-8.2) Albumin 3.2 g/dL (3.4-5.0) Albumin/Globulin Ratio 0.9 (1.0-1.7) Thyroid Stimulating Hormone (TSH) 0.251 uIU/mL (0.358-3.74) Review of Systems Review of Systems: gen: no significant weight changes CV: advocates chest pain Pulm: advocates SOA Assessment and Plan Assessmemt and Plan Assessment acute chest pain new systolic CHF Echo 05/24: LV dilation EF 10-15% with mitral regurg s/p L and R cardiac catheterization cardiomyopathy Dm2-very poor control, blood sugar 450 Plan await further surgery input await cath results and rec from cardiology regarding care GI has been consulted and is following case await input Continue cardiac monitoring wound care Trend labs Await TSH A1C levels Dispo: pending per subspecialist input Comment Review of Relevant I have reviewed the following items tierra (where applicable) has been applied. Medications: Current Medications Medications (Trade) Dose Ordered Sig/Aylin Route PRN Reason Start Time Stop Time Status Last Admin Dose Admin Oxycodone/ Acetaminophen (Percocet 5/325) 1 tab PRN Q4HRS PRN PO PAIN 05/26/19 17:00 05/27/19 08:10 Zolpidem Tartrate (Ambien) 5 mg PRN QHS PRN PO INSOMNIA 05/26/19 17:00 05/26/19 22:27 Atorvastatin Calcium (Lipitor) 40 mg HS PO 05/26/19 21:00 05/26/19 21:17 Lisinopril (Prinivil) 10 mg DAILY PO 05/27/19 09:00 05/27/19 08:10 Insulin Human Lispro (HumaLOG) 0-9 UNITS TIDWMEALS SQ 05/27/19 08:00 05/27/19 08:25 Insulin Human Lispro (HumaLOG) 15 units TIDWMEALS SQ 05/26/19 17:10 05/26/19 17:47 Insulin Glargine (Lantus Syringe) 25 unit QHS SQ 05/26/19 21:00 05/26/19 21:19 Nitroglycerin (Nitroglycerin) 200 mcg 1X ONCE IART 05/27/19 09:00 05/27/19 09:13 DC 05/27/19 09:27 Verapamil HCl (Verapamil) 2.5 mg 1X ONCE IART 05/27/19 09:00 05/27/19 09:13 DC 05/27/19 09:27 Heparin Sodium (Porcine) (Heparin Sodium) 2,500 unit 1X ONCE IART 05/27/19 09:00 05/27/19 09:13 DC 05/27/19 09:27 Heparin Sodium/ Sodium Chloride (HEPARIN for ARTERIAL LINE FLUSH) 1,000 unit 1X ONCE IART 05/27/19 09:00 05/27/19 09:13 DC 05/27/19 09:00 Heparin Sodium/ Sodium Chloride (HEPARIN for ARTERIAL LINE FLUSH) 1,000 unit 1X ONCE IART 05/27/19 09:00 05/27/19 09:13 DC 05/27/19 09:00 Midazolam HCl (Versed) 2 mg 1X ONCE IV 05/27/19 09:00 05/27/19 09:13 DC 05/27/19 09:25 Fentanyl Citrate (Fentanyl 2ml Vial) 100 mcg 1X ONCE IV 05/27/19 09:00 05/27/19 09:13 DC 05/27/19 09:25 Iodixanol (Visipaque 320) 100 ml 1X ONCE IART 05/27/19 09:00 05/27/19 09:13 DC 05/27/19 09:51 Lidocaine HCl (Xylocaine-Mpf 1% 2ml Vial) 2 ml 1X ONCE INJ 05/27/19 09:00 05/27/19 09:13 DC 05/27/19 09:00 ANTHONY CHRISTIANSEN III DO May 27, 2019 12:07
[2019-05-27] MEDS ORDERED: DICYCLOMINE HCL 10 MG CAPSULE PO PRN (12:15)
[2019-05-27] MEDS ORDERED: POLYETHYLENE GLYCOL 3350 17 GM PACKET. PO PRN (12:15)
[2019-05-27] MEDS ORDERED: LIDO:MAALOX 1:1 20 ML SINGLE DOSE. PO PRN (12:15)
[2019-05-27] MEDS: PANTOPRAZOLE 40 MG TABLET.DR. PO SCH (12:41)
--- NOTE | 2019-05-27 14:33 | NUR ---
SS following for discharge planning. SS reviewed pt chart. Pt is from home with spouse and is currently on room air. SS will continue to follow for discharge planning.
[2019-05-27 14:49] LABS: BILIRUBIN,URINE NEGATIVE (NEG); CLARITY,URINE CLEAR; COLOR,URINE YELLOW; NITRITE,URINE NEGATIVE (NEG); PH,URINE 6.5 (<5.0-8.0); PROTEIN,URINE 30 mg/dL (NEG-TRACE)
[2019-05-27 14:55] LABS: BACTERIA,URINE FEW /HPF (0-FEW); RBC,URINE 0 /HPF (0-2); WBC,URINE RARE /HPF (0-4)
[2019-05-27 14:56] LABS: SQUAMOUS EPITHELIAL CELL,UR MANY /LPF
[2019-05-27] MEDS: CARVEDILOL 12.5 MG TABLET. PO SCH (17:48)
[2019-05-27] MEDS: ATORVASTATIN CALCIUM 40 MG TABLET. PO SCH (20:39)
[2019-05-27] MEDS: ZOLPIDEM 5 MG TABLET. PO PRN (20:39)
[2019-05-27] MEDS: INSULIN GLARGINE SYRINGE. SQ SCH (20:44)
[2019-05-28 00:08] LABS: HEMOGLOBIN A1C 11.1 % (4.8-5.6)
[2019-05-28 03:13] VITALS: BP 119/74
[2019-05-28 07:00] VITALS: BP 142/86
[2019-05-28] MEDS: INSULIN LISPRO 300 UNITS/3 ML VIAL. SQ SCH ×6 (08:00→17:00)
--- NOTE | 2019-05-28 10:29 | PDOC ---
DEBORAH CISNEROS FLUE CLEANER 05/28/19 1029: CARDIO Progress Notes Date and Time Date of Service Time of Evaluation 1010 Subjective Subjective: No shortness of breath, No Palpitations, Other (still having intermittent sharp right sided chest pain) Vitals Vitals Vital Signs Date Time Temp Pulse Resp B/P (MAP) Pulse Ox O2 Delivery O2 Flow Rate FiO2 05/28/19 08:05 Room Air 05/28/19 07:00 98.3 83 20 142/86 (104) 100 98.3 05/27/19 10:00 2.0 Weight Weight [ ] Input and Output Intake and Output Intake and Output 05/28/19 07:00 Intake Total 1500 ml Output Total 1151 ml Balance 349 ml Intake Oral 1500 ml Output Urine Total 1151 ml Laboratory Labs Laboratory Tests Test 05/27/19 11:10 05/27/19 12:10 05/27/19 12:26 05/27/19 17:05 Sodium Level 136 mmol/L (136-145) Potassium Level 3.9 mmol/L (3.5-5.1) Chloride Level 100 mmol/L (98-107) Carbon Dioxide Level 32 mmol/L (21-32) Anion Gap 4 (6-14) Blood Urea Nitrogen 22 mg/dL (7-20) Creatinine 0.9 mg/dL (0.6-1.0) Estimated GFR (Cockcroft-Gault) 65.8 Glucose Level 139 mg/dL (70-99) Calcium Level 8.6 mg/dL (8.5-10.1) Magnesium Level 1.8 mg/dL (1.8-2.4) Triglycerides Level 72 mg/dL (0-150) Cholesterol Level 200 mg/dL (0-200) LDL Cholesterol, Calculated 137 mg/dL (0-100) VLDL Cholesterol, Calculated 14 mg/dL (0-40) Non-HDL Cholesterol Calculated 151 mg/dL (0-129) HDL Cholesterol 49 mg/dL (40-60) Cholesterol/HDL Ratio 4.1 Glucose (Fingerstick) 229 mg/dL (70-99) 129 mg/dL (70-99) Urine Collection Type Unknown Urine Color Yellow Urine Clarity Clear Urine pH 6.5 (<5.0-8.0) Urine Specific [place] >=1.030 (1.000-1.030) Urine Protein 30 mg/dL (NEG-TRACE) Urine Glucose (UA) 250 mg/dL (NEG) Urine Ketones (Stick) Negative mg/dL (NEG) Urine Blood Negative (NEG) Urine Nitrite Negative (NEG) Urine Bilirubin Negative (NEG) Urine Urobilinogen Dipstick 1.0 mg/dL (0.2 mg/dL) Urine Leukocyte Esterase Negative (NEG) Urine RBC 0 /HPF (0-2) Urine WBC Rare /HPF (0-4) Urine Squamous Epithelial Cells Many /LPF Urine Bacteria Few /HPF (0-FEW) Urine Mucus Slight /LPF Test 05/27/19 20:40 05/28/19 08:04 Glucose (Fingerstick) 250 mg/dL (70-99) 208 mg/dL (70-99) Physical Exam HEENT: Neck Supple W Full Motion Chest: Symmetric LUNGS: Clear to Auscultation Heart: S1S2, RRR (SR) Abdomen: Soft N/T Extremities: No Edema, No Calf Tenderness Neurology: alert, oriented, follow commands Other Exams right arteriotomy site intact no erythema, swelling, neurovascular status to right hand intact Assessment Assessment 1. Severe NICM EF at 10-15% compensated. S/P LHC with nml intracardiac pressures no significant CAD 2. Right sided chest pain: with intermittent n/v. was being considered for outpt lap [facility]ham. W/U per GI 3. HLP 4. DM2: A1C 11.1, consider insulin therapy, defer to PCP 5. CKD3 6. Arrhythmia: NSVT episodes 7. Chronic systolic CHF: NYHA2 Recommendations 1. Continue home low dose lasix, lipitro, coreg and lisinopril. 2. Lifevest prior to DC. Will discuss future AICD. Follow up in 2 weeks and will discuss referral for consideration of heart transplant 3. Restart home coreg and lisinopril per BP trend . statin per lipid level. C ontinue po lasix therapy xtra dose PRN 4. Daily wt, Strict I & O. 1.5 L FR 5. Replace Mg and K as warranted JEVON PRECIADO MD 05/29/19 1342: CARDIO Progress Notes Plan Plan Late entry for 05/28/2019 Pt. seen and examined. Agree with above [employer] note. Plan for outpt ICD in a few weeks after resolution of abdominal issues. DEBORAH CISNEROS APRN May 28, 2019 10:29 JEVON PRECIADO MD May 29, 2019 13:42
--- NOTE | 2019-05-28 10:32 | PDOC ---
[facility] PROGRESS NOTE Chief Complaint Chief Complaint acute chest pain new systolic CHF Echo 05/24: LV dilation EF 10-15% with mitral regurg s/p L and R cardiac catheterization cardiomyopathy Dm2-very poor control, blood sugar 450 Preop workup for eventual elective laparoscopic cholecystectomy in progress History of Present Illness History of Present Illness [id number] Patient seen and examined Chart reviewed Discussed with RN 05/27/19 Pt admitted yesterday for new systolic HF and RUQ pain. General surgery was involved with care for possible lap graham when heart failure was found. Pt was seen and examined sitting in bed s/p bilateral cardiac catheterization. Discussed care with RN. 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 Vitals/I&O Vitals/I&O: Vital Signs Date Time Temp Pulse Resp B/P (MAP) Pulse Ox O2 Delivery O2 Flow Rate FiO2 05/28/19 08:05 Room Air 05/28/19 07:00 98.3 83 20 142/86 (104) 100 98.3 05/27/19 10:00 2.0 I & O 05/27/19 05/27/19 05/28/19 15:00 23:00 07:00 Intake Total 1300 ml 200 ml Output Total 600 ml 551 ml Balance -600 ml 1300 ml -351 ml Physical Exam General: Alert, Oriented X3, Cooperative, No acute distress Heart: Regular rate (SR), Normal S1, Normal S2, Other (S4. left displaced apical impulse with 3/6 spical murmur) Abdomen: Soft, No tenderness Extremities: No cyanosis, No edema Skin: No breakdown, No significant lesion Labs Labs: Laboratory Tests Test 05/27/19 11:10 05/27/19 12:10 05/27/19 12:26 05/27/19 17:05 Sodium Level 136 mmol/L (136-145) Potassium Level 3.9 mmol/L (3.5-5.1) Chloride Level 100 mmol/L (98-107) Carbon Dioxide Level 32 mmol/L (21-32) Anion Gap 4 (6-14) Blood Urea Nitrogen 22 mg/dL (7-20) Creatinine 0.9 mg/dL (0.6-1.0) Estimated GFR (Cockcroft-Gault) 65.8 Glucose Level 139 mg/dL (70-99) Calcium Level 8.6 mg/dL (8.5-10.1) Magnesium Level 1.8 mg/dL (1.8-2.4) Triglycerides Level 72 mg/dL (0-150) Cholesterol Level 200 mg/dL (0-200) LDL Cholesterol, Calculated 137 mg/dL (0-100) VLDL Cholesterol, Calculated 14 mg/dL (0-40) Non-HDL Cholesterol Calculated 151 mg/dL (0-129) HDL Cholesterol 49 mg/dL (40-60) Cholesterol/HDL Ratio 4.1 Glucose (Fingerstick) 229 mg/dL (70-99) 129 mg/dL (70-99) Urine Collection Type Unknown Urine Color Yellow Urine Clarity Clear Urine pH 6.5 (<5.0-8.0) Urine Specific [place] >=1.030 (1.000-1.030) Urine Protein 30 mg/dL (NEG-TRACE) Urine Glucose (UA) 250 mg/dL (NEG) Urine Ketones (Stick) Negative mg/dL (NEG) Urine Blood Negative (NEG) Urine Nitrite Negative (NEG) Urine Bilirubin Negative (NEG) Urine Urobilinogen Dipstick 1.0 mg/dL (0.2 mg/dL) Urine Leukocyte Esterase Negative (NEG) Urine RBC 0 /HPF (0-2) Urine WBC Rare /HPF (0-4) Urine Squamous Epithelial Cells Many /LPF Urine Bacteria Few /HPF (0-FEW) Urine Mucus Slight /LPF Test 05/27/19 20:40 05/28/19 08:04 Glucose (Fingerstick) 250 mg/dL (70-99) 208 mg/dL (70-99) Assessment and Plan Assessmemt and Plan Atypical chest pain suspect GI related new systolic CHF Echo 05/24: LV dilation EF 10-15% with mitral regurg s/p L and R cardiac catheterization cardiomyopathy Dm2-very poor control, blood sugar 450 Plan Life vest before discharge per cardiology Further GI evaluation progress Continue cardiac monitoring wound skilled nursing meds Trend labs Discharge disposition pending Eventually she will get an elective cholecystectomy Comment Review of Relevant I have reviewed the following items tierra (where applicable) has been applied. Medications: Current Medications Medications (Trade) Dose Ordered Sig/Aylin Route PRN Reason Start Time Stop Time Status Last Admin Dose Admin Carvedilol (Coreg) 25 mg BIDWMEALS PO 05/27/19 17:30 05/27/19 17:48 Pantoprazole Sodium (Protonix) 40 mg DAILYAC PO 05/27/19 12:30 05/27/19 12:41 ANTHONY CHRISTIANSEN III DO May 28, 2019 10:32
--- NOTE | 2019-05-28 10:33 | PDOC ---
Subjective: Subjective: Doing okay, sides hurt. Has been down to start GES. Objective: Vital Signs: Vital Signs Date Time Temp Pulse Resp B/P (MAP) Pulse Ox O2 Delivery O2 Flow Rate FiO2 05/28/19 08:05 Room Air 05/28/19 07:00 98.3 83 20 142/86 (104) 100 98.3 05/27/19 10:00 2.0 Labs: Laboratory Tests Test 05/27/19 11:10 05/27/19 12:10 05/27/19 12:26 05/27/19 17:05 Sodium Level 136 mmol/L Potassium Level 3.9 mmol/L Chloride Level 100 mmol/L Carbon Dioxide Level 32 mmol/L Anion Gap 4 Blood Urea Nitrogen 22 mg/dL Creatinine 0.9 mg/dL Estimated GFR (Cockcroft-Gault) 65.8 Glucose Level 139 mg/dL Calcium Level 8.6 mg/dL Magnesium Level 1.8 mg/dL Triglycerides Level 72 mg/dL Cholesterol Level 200 mg/dL LDL Cholesterol, Calculated 137 mg/dL VLDL Cholesterol, Calculated 14 mg/dL Non-HDL Cholesterol Calculated 151 mg/dL HDL Cholesterol 49 mg/dL Cholesterol/HDL Ratio 4.1 Glucose (Fingerstick) 229 mg/dL 129 mg/dL Urine Collection Type Unknown Urine Color Yellow Urine Clarity Clear Urine pH 6.5 Urine Specific [place] >=1.030 Urine Protein 30 mg/dL Urine Glucose (UA) 250 mg/dL Urine Ketones (Stick) Negative mg/dL Urine Blood Negative Urine Nitrite Negative Urine Bilirubin Negative Urine Urobilinogen Dipstick 1.0 mg/dL Urine Leukocyte Esterase Negative Urine RBC 0 /HPF Urine WBC Rare /HPF Urine Squamous Epithelial Cells Many /LPF Urine Bacteria Few /HPF Urine Mucus Slight /LPF Test 05/27/19 20:40 05/28/19 08:04 Glucose (Fingerstick) 250 mg/dL 208 mg/dL PE: GEN: NAD LUNGS: CTAB HEART: RRR ABD: NABS, S/ND/NT - no epigastric discomfort today - tender right abd left ribs NEURO/PSYCH: A & O 3 A/P: Bilateral rib pain DM (A1c 11), recent vomiting -- Await GES, can resume diet after, consider DC soon. Hemodynamically unstable?: No Is patient in severe pain?: No Is NPO status required?: No MAVERICK GAXIOLA May 28, 2019 10:33
[2019-05-28 10:38] VITALS: BP 136/83
[2019-05-28] MEDS ORDERED: ASPIRIN ENTERIC COATED 81 MG TABLET.DR. PO SCH (11:00)
[2019-05-28 12:01] LABS: CALCIUM 8.6 mg/dL (8.5-10.1); CREATININE 0.9 mg/dL (0.6-1.0); GFR 65.8; POTASSIUM 4.3 mmol/L (3.5-5.1)
--- NOTE | 2019-05-28 12:20 | RAD ---
Gastric Emptying Study Indication: Abdominal pain, nausea and vomiting. Procedure: Anterior and posterior projection static images are obtained over the stomach following oral administration of 2.1 mCi of 99 M technetium sulfur colloid in a solid meal (egg and toast). Time points include an immediate baseline, and 1, 2, 3, and 4 hours post ingestion. Findings: There is progressive emptying of the stomach on sequential images. Percentage retention at one hour is 50% (normal 34.8-91%). Two hours 36% (normal 2.7-60%). Three hours 5% (normal 0.5-28%). Four hours 0% (normal 0-10%). The calculated T1/2 is 64 minutes. Normal is 45-90 minutes. IMPRESSION: Normal 4 hour protocol gastric emptying study. Electronically signed by: Edgardo Meza MD (05/28/2019 12:17 PM) [id number]
[2019-05-28] MEDS: PANTOPRAZOLE 40 MG TABLET.DR. PO SCH (12:21)
[2019-05-28] MEDS: CARVEDILOL 12.5 MG TABLET. PO SCH ×2 (12:21→17:00)
[2019-05-28] MEDS: LISINOPRIL 10 MG TABLET PO SCH (12:21)
[2019-05-28 14:44] VITALS: BP 108/75
[2019-05-28 17:00] VITALS: BP 108/75
--- NOTE | 2019-05-28 17:47 | NUR ---
Discharge instructions and belongings reviewed with patient, verbalized understanding. Patient received her life vest and was educated with by rep. Patient will be escorted out via wheelchair by Judith RIVERA.
== END 2019-05-28 17:20 | disposition home or self-care (01) | DRG 287 ==
LOC: 2 NORTH 15:25
PROVIDERS: ADMIT Internal Medicine; ATTEND Internal Medicine
PROC: 4A023N7 Measurement of Cardiac Sampling and Pressure, Left Heart, Percutaneous Approach (ICD-10-PCS; principal; 2019-05-27)
PROC: B2111ZZ Fluoroscopy of Multiple Coronary Arteries using Low Osmolar Contrast (ICD-10-PCS; 2019-05-27)
DX: R07.89 Other chest pain (principal); I42.9 Cardiomyopathy, unspecified; I13.0 Hypertensive heart and chronic kidney disease with heart failure and stage 1 through stage 4 chronic kidney disease, or unspecified chronic kidney disease; I47.2 Ventricular tachycardia; I50.22 Chronic systolic (congestive) heart failure; E78.5 Hyperlipidemia, unspecified; E11.22 Type 2 diabetes mellitus with diabetic chronic kidney disease; E11.42 Type 2 diabetes mellitus with diabetic polyneuropathy; G47.33 Obstructive sleep apnea (adult) (pediatric); K21.9 Gastro-esophageal reflux disease without esophagitis; F32.9 Major depressive disorder, single episode, unspecified; K57.30 Diverticulosis of large intestine without perforation or abscess without bleeding; K64.8 Other hemorrhoids; N18.3 Chronic kidney disease, stage 3 (moderate); I34.0 Nonrheumatic mitral (valve) insufficiency
CPT/HCPCS: 36415; 76937; 78264; 80048; 80053; 80061; 81001; 82962; 83036; 83735; 84443; 85025; 93005; 93453; 99152; 99153; A9541; C1769; C1773; C1892; J1644; J1815; J2250; J3010; J3490; Q9967; G0378